=== PATIENT | female | born 1970 | race Caucasian/White ===

== ENCOUNTER 2017-07-28 16:17 | Emergency (ER) | payer BC ==
[~2017-07-28] VITALS: Ht 175.3 cm; Wt 48.5 kg
[~2017-07-28 16:17] MED LIST: LINA145C PO; LOR5 PO; MIR; THYR15TA6 PO; TRAZ-156 PO
[2017-07-28 17:05] LABS: PLATELET COUNT, AUTOMATED 429 K/uL (150-450)
--- NOTE | 2017-07-28 18:53 | RADIOLOGY IMAGING REPORT ---
FACILITY: [facility] - [place] PATIENT NAME: Efren Jacobo : 1970 MR: [id number] V: [id number] EXAM DATE: ORDERING PHYSICIAN: KJ MCDONALD TECHNOLOGIST: Location: [facility] [place] Patient: Efren Jacobo : 1970 Visit/Account:[id number] Date of Sevice: 07/28/2017 EXAMINATION: Frontal chest with 2 views of the abdomen HISTORY: Constipation. Abdominal pain. COMPARISON: CT abdomen/pelvis 05/09/2015. FINDINGS: The lungs are clear. No focal consolidation or pleural fluid. Normal heart size and pulmonary vascula rity, with normal cardiomediastinal contours. Nonspecific bowel gas pattern. There is air present throughout nondilated segments of small bowel and colon, with multiple air-fluid levels on the upright view. This may be compatible with a generalized enteritis but is nonspecific. No radiographic evidence of obstruction. No free intraperitoneal air. Hepatosplenomegaly, new since the prior CT. The liver measures approximately 18 cm in length at the m idclavicular line. The spleen measures approximately 15 cm in length. No evidence of pathologic calci fication in the abdomen or pelvis. Visualized osseous structures appear intact. IMPRESSION: 1. No evidence of acute cardiopulmonary disease. 2. Nonspecific bowel gas pattern. There is air present throughout nondilated segments of small bowel and colon, with air-fluid levels on the upright view. This may be compatible with a generalized enter itis but is nonspecific. 3. Hepatosplenomegaly. Report Dictated By: Jaswinder Evans MD at 07/28/2017 6:44 PM Report E-Signed By: Jaswinder Evans MD at 07/28/2017 6:48 PM WSN:[id number]
[2017-07-28] MEDS ORDERED: DICY-42 PO (19:28)
--- NOTE | 2017-07-28 19:28 | ER Report ---
History and Physical Time Seen By MD: 16:20 Hx. of Stated Complaint: SMALL AMOUNTS OF LIQUID BM X 1 WEEK, NO REAL BM, PT REPORTS ABDOMINAL DISCOMFORT HPI/ROS CHIEF COMPLAINT: Constipation HISTORY OF PRESENT ILLNESS: She is a 47-year-old female who presents the ED with a complaint of constipation and intermittent abdominal pain for the past couple days. She states that she actually has chronic constipation and diarrhea as well as intermittent abdominal pain. She states that she has been seen by gastroenterology multiple times here and in [place]. Patient states that she has not seen GI here for the past 2 years. She states that she is no longer in medications. 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 Patient states that she did see her primary care provider who did order a pelvic ultrasound to be completed. She did have this completed and came the emergency room afterwards. She denies any nausea or vomiting. She has not noted any fever. REVIEW OF SYSTEMS: Constitutional: No fever, no chills. Eyes: No discharge. ENT: No sore throat. Cardiovascular: No chest pain, no palpitations. Respiratory: No cough, no shortness of breath. Gastrointestinal: See history of present illness. Genitourinary: No hematuria. Musculoskeletal: No back pain. Skin: No rashes. Neurological: No headache. Allergies: Coded Allergies: No Known Allergies (Verified Allergy, Mild, 07/28/17) Home Meds Reported Medications Linaclotide (LINZESS) 145 Mcg Capsule, PO, CAPSULE 05/06/15 Thyroid,Pork (ARMOUR THYROID) 15 Mg Tablet, PO 05/06/15 Discontinued Scripts Trazodone Hcl (TRAZODONE HCL) 50 Mg Tablet, 50-100 MG PO QHS for Sleep, #60 1 Refill Prov:GINNY ROSE DO 05/06/15 Reviewed Nurses Notes: Yes Old Medical Records Reviewed: Yes Hx Smoking: No Smoking Status: Never Smoker Hx Substance Use Disorder: No Hx Alcohol Use: Yes (OCC) Constitutional Vital Sign - Last 24 Hours 07/28/17 07/28/17 07/28/17 07/28/17 16:26 16:30 16:45 17:00 Temp 98.6 Pulse 70 72 79 79 Resp 16 B/P (MAP) 116/80 116/80 (92) 117/83 (94) Pulse Ox 98 99 97 95 O2 Delivery Room Air 07/28/17 07/28/17 07/28/17 07/28/17 17:05 17:30 17:35 18:00 Pulse 78 B/P (MAP) 117/86 (96) 111/82 (92) Pulse Ox 96 07/28/17 07/28/17 18:05 18:36 Temp 98.2 Pulse 77 Pulse Ox 96 Physical Exam General Appearance: The patient is alert, has no immediate need for airway protection and no signs of toxicity. Patient appears to be in no acute distress. ENT, Mouth: Mucous membranes are moist. Respiratory: There are no retractions, lungs are clear to auscultation. Cardiovascular: Regular rate and rhythm. Gastrointestinal: Abdomen is soft and non tender, no masses, bowel sounds normal in all 4 quadrants. Skin: Warm and dry, no rashes. Musculoskeletal: Neck is supple non tender. Extremities are nontender, nonswollen and have full range of motion. DIFFERENTIAL DIAGNOSIS: After history and physical exam differential diagnosis was considered for abdominal pain including but not limited to appendicitis, cholecystitis, gastritis and urinary tract infection. Medical Decision Making Data Points Result Diagram: 07/28/17 1657 07/28/17 1657 Laboratory Hematology Test 07/28/17 16:25 07/28/17 16:57 Urine Color Yellow Urine Clarity Clear Urine pH 7.0 pH (4.8-9.5) Urine Specific [place] 1.005 Urine Protein Negative mg/dL (NEGATIVE) Urine Glucose (UA) Negative mg/dL (NEGATIVE) Urine Ketones Negative mg/dL (NEGATIVE) Urine Blood Negative (NEGATIVE) Urine Nitrite Negative (NEGATIVE) Urine Bilirubin Negative (NEGATIVE) Urine Urobilinogen Negative mg/dL (0.2-1.9) Urine Leukocyte Esterase Trace (NEGATIVE) Urine RBC None /HPF (0-2/HPF) Urine WBC 3 /HPF (0-5/HPF) Urine Squamous Epithelial Cells Many /LPF (</=FEW) Urine Bacteria Few /HPF (NONE-FEW) Urine Mucus None /HPF (NONE-FEW) Red Blood Count 5.09 M/uL (4.17-5.56) Mean Corpuscular Volume 77.1 fL (80.0-96.0) Mean Corpuscular Hemoglobin 25.5 pg (26.0-33.0) Mean Corpuscular Hemoglobin Concent 33.0 g/dL (32.0-36.0) Red Cell Distribution Width 15.5 % (11.5-14.5) Mean Platelet Volume 6.8 fL (7.2-11.1) Neutrophils (%) (Auto) 74.2 % (39.4-72.5) Lymphocytes (%) (Auto) 18.7 % (17.6-49.6) Monocytes (%) (Auto) 5.3 % (4.1-12.4) Eosinophils (%) (Auto) 0.5 % (0.4-6.7) Basophils (%) (Auto) 1.3 % (0.3-1.4) Nucleated RBC Relative Count (auto) 0.0 /100WBC Neutrophils # (Auto) 6.7 K/uL (2.0-7.4) Lymphocytes # (Auto) 1.7 K/uL (1.3-3.6) Monocytes # (Auto) 0.5 K/uL (0.3-1.0) Eosinophils # (Auto) 0.0 K/uL (0.0-0.5) Basophils # (Auto) 0.1 K/uL (0.0-0.1) Nucleated RBC Absolute Count (auto) 0.00 K/uL Sodium Level 137 mmol/L (137-145) Potassium Level 3.8 mmol/L (3.5-5.0) Chloride Level 98 mmol/L (98-107) Carbon Dioxide Level 28 mmol/L (22-31) Blood Urea Nitrogen 15 mg/dl (7-18) Creatinine 0.80 mg/dl (0.52-1.04) Glomerular Filtration Rate Calc > 60.0 Random Glucose 87 mg/dl (75-110) Calcium Level 8.8 mg/dl (8.4-10.2) Total Bilirubin 0.4 mg/dl (0.2-1.3) Aspartate Amino Transf (AST/SGOT) 20 U/L (0-35) Alanine Aminotransferase (ALT/SGPT) 29 U/L (0-56) Alkaline Phosphatase 78 U/L (0-126) Total Protein 7.1 gm/dl (6.3-8.2) Albumin 3.9 g/dl (3.5-5.0) Lipase 123 U/L (23-300) Human Chorionic Gonadotropin, Qual Negative (NEGATIVE) Chemistry Test 07/28/17 16:25 07/28/17 16:57 Urine Color Yellow Urine Clarity Clear Urine pH 7.0 pH (4.8-9.5) Urine Specific [place] 1.005 Urine Protein Negative mg/dL (NEGATIVE) Urine Glucose (UA) Negative mg/dL (NEGATIVE) Urine Ketones Negative mg/dL (NEGATIVE) Urine Blood Negative (NEGATIVE) Urine Nitrite Negative (NEGATIVE) Urine Bilirubin Negative (NEGATIVE) Urine Urobilinogen Negative mg/dL (0.2-1.9) Urine Leukocyte Esterase Trace (NEGATIVE) Urine RBC None /HPF (0-2/HPF) Urine WBC 3 /HPF (0-5/HPF) Urine Squamous Epithelial Cells Many /LPF (</=FEW) Urine Bacteria Few /HPF (NONE-FEW) Urine Mucus None /HPF (NONE-FEW) White Blood Count 9.1 k/uL (4.5-11.0) Red Blood Count 5.09 M/uL (4.17-5.56) Hemoglobin 13.0 g/dL (12.0-16.0) Hematocrit 39.2 % (34.0-47.0) Mean Corpuscular Volume 77.1 fL (80.0-96.0) Mean Corpuscular Hemoglobin 25.5 pg (26.0-33.0) Mean Corpuscular Hemoglobin Concent 33.0 g/dL (32.0-36.0) Red Cell Distribution Width 15.5 % (11.5-14.5) Platelet Count 429 K/uL (150-450) Mean Platelet Volume 6.8 fL (7.2-11.1) Neutrophils (%) (Auto) 74.2 % (39.4-72.5) Lymphocytes (%) (Auto) 18.7 % (17.6-49.6) Monocytes (%) (Auto) 5.3 % (4.1-12.4) Eosinophils (%) (Auto) 0.5 % (0.4-6.7) Basophils (%) (Auto) 1.3 % (0.3-1.4) Nucleated RBC Relative Count (auto) 0.0 /100WBC Neutrophils # (Auto) 6.7 K/uL (2.0-7.4) Lymphocytes # (Auto) 1.7 K/uL (1.3-3.6) Monocytes # (Auto) 0.5 K/uL (0.3-1.0) Eosinophils # (Auto) 0.0 K/uL (0.0-0.5) Basophils # (Auto) 0.1 K/uL (0.0-0.1) Nucleated RBC Absolute Count (auto) 0.00 K/uL Glomerular Filtration Rate Calc > 60.0 Calcium Level 8.8 mg/dl (8.4-10.2) Total Bilirubin 0.4 mg/dl (0.2-1.3) Aspartate Amino Transf (AST/SGOT) 20 U/L (0-35) Alanine Aminotransferase (ALT/SGPT) 29 U/L (0-56) Alkaline Phosphatase 78 U/L (0-126) Total Protein 7.1 gm/dl (6.3-8.2) Albumin 3.9 g/dl (3.5-5.0) Lipase 123 U/L (23-300) Human Chorionic Gonadotropin, Qual Negative (NEGATIVE) Urinalysis Test 07/28/17 16:25 Urine Color Yellow Urine Clarity Clear Urine pH 7.0 pH (4.8-9.5) Urine Specific [place] 1.005 Urine Protein Negative mg/dL (NEGATIVE) Urine Glucose (UA) Negative mg/dL (NEGATIVE) Urine Ketones Negative mg/dL (NEGATIVE) Urine Blood Negative (NEGATIVE) Urine Nitrite Negative (NEGATIVE) Urine Bilirubin Negative (NEGATIVE) Urine Urobilinogen Negative mg/dL (0.2-1.9) Urine Leukocyte Esterase Trace (NEGATIVE) Urine RBC None /HPF (0-2/HPF) Urine WBC 3 /HPF (0-5/HPF) Urine Squamous Epithelial Cells Many /LPF (</=FEW) Urine Bacteria Few /HPF (NONE-FEW) Urine Mucus None /HPF (NONE-FEW) EKG/Imaging Imaging Abdomen Xrays: IMPRESSION: 1. No evidence of acute cardiopulmonary disease. 2. Nonspecific bowel gas pattern. There is air present throughout nondilated segments of small bowel and colon, with air-fluid levels on the upright view. This may be compatible with a generalized enteritis but is nonspecific. 3. Hepatosplenomegaly. Report Dictated By: Jaswinder Evans MD at 07/28/2017 6:44 PM Report E-Signed By: Jaswinder Evans MD at 07/28/2017 6:48 PM ED Course/Re-evaluation ED Course 07/28/2017 7:25:44 pm - Discussed all labs and imaging with patient. Given his history it sounds that she does have some irritable bowel syndrome. She is currently not on any medication. Would like to start her on some Bentyl and have her follow-up with gastroenterology. Decision to Disposition Date: Jul 28, 2017 Decision to Disposition Time: 19:26 Depart Departure Latest Vital Signs Vital Signs Date Time Temp Pulse Resp B/P (MAP) Pulse Ox O2 Delivery O2 Flow Rate FiO2 07/28/17 18:36 98.2 07/28/17 18:05 77 96 07/28/17 18:00 111/82 (92) 07/28/17 16:26 16 Room Air Impression: Primary Impression: Irritable bowel syndrome Condition: Improved Disposition: HOME OR SELF-CARE Referrals: MARLEE OTERO DO (PCP) GASTROENTEROLOGY New Scripts Dicyclomine Hcl (BENTYL) 10 Mg Capsule 20 MG PO QID, #20 CAPSULE Prov: KJ MCDONALD PA-C 07/28/17 Patient Instructions: Irritable Bowel Syndrome (ED) Additional Instructions: Droop. Follow-up with primary care provider gastroenterology to 3 days. If having any worsening concerning symptoms may return to the emergency department. Problem Qualifiers Primary Impression: Irritable bowel syndrome Irritable bowel syndrome type: with both diarrhea and constipation Qualified Codes: K58.2 - Mixed irritable bowel syndrome KJ MCDONALD PA-C Jul 28, 2017 19:28
[2017-07-28] MEDS ORDERED: DICYCLOMINE HCL 10 MG CAP PO ONE (19:30)
[2017-07-28 19:36] VITALS: BP 132/82
== END 2017-07-28 19:37 | disposition home or self-care (01) ==
LOC: ER 16:23
DX: K58.2 Mixed irritable bowel syndrome (principal)
CPT/HCPCS: 74022; 81001; 82040; 82247; 82310; 82374; 82435; 82565; 82947; 83690; 84075; 84132; 84155; 84295; 84450; 84460; 84520; 84703; 85025; 99284